=== PATIENT | female | born 1945 | race Hispanic/Latino ===

== ENCOUNTER 2016-07-05 09:06 | Outpatient (CLI) | payer MEDICARE, OTHER ==
[2016-07-05 16:36] LABS: #Basophils 0.1 thou/uL (0.0-0.2); #Eosinphils 0.2 thou/uL (0.0-0.7); #Lymphocytes 1.5 thou/uL (1.20-3.40); #Monocytes 0.4 thou/uL (0.11-0.59); #Neutrophils 4.3 thou/uL (1.40-6.50); %Basophils 1.5 % (0.0-1.0); %Eosinophils 3.3 % (0.0-10.0); %Lymphocytes 23.4 % (21.0-51.0); %Monocytes 6.6 % (0.0-10.0); %Neutrophils 65.2 % (42.0-75.0); Hemoglobin 14.3 g/dL (12.0-16.0); Mean Corpuscular HGB CONC 33.4 g/dL (32.0-36.0); Mean Corpuscular Hemoglobin 30.4 pg (27.0-31.0); Mean Platelet Volume 8.5 fL (7.4-10.4); Platelet Count 196 thou/uL (130-400); RBC Distribution Width 11.3 % (11.5-14.5); White Blood Cell (WBC) Count 6.6 thou/uL (4.8-10.8)
[2016-07-05 16:48] LABS: ALT (SGPT) 12 U/L (0-55); AST (SGOT) 15 U/L (5-34); Alkaline Phosphatase 63 U/L (40-150); Anion Gap 10 mmol/L (10-20); BUN (Urea Nitrogen) 11 mg/dL (9.8-20.1); Bilirubin, Total 0.4 mg/dL (0.2-1.2); Calc. Creatinine Clearance 0 mL/min (70-130); Calcium 8.8 mg/dL (7.8-10.44); Carbon Dioxide 28 mmol/L (23-31); Cardiac Risk 2.8 (Less than 4.5); Chloride 108 mmol/L (98-107); Cholesterol 139 mg/dL (< 200 Desired); Estimated GFR-MDRD 87; Globulin 2.7 g/dL (2.4-3.5); Glucose 91 mg/dL (83-110); HDL Cholesterol 50 mg/dL (>60 Neg Risk); LDL Cholesterol, Calculated 69 mg/dL; Potassium 4.7 mmol/L (3.5-5.1); Protein, Total 6.7 g/dL (5.8-8.1); Sodium 141 mmol/L (136-145); Triglycerides 100 mg/dL (Less than 150)
[2016-07-05 17:28] LABS: Thyroid Stimulating Hormone 0.4718 uIU/mL (0.35-4.94)
[2016-07-05 18:12] LABS: Hep C IgG Ab Non-Reactive (NonReactive); Hep C Index 0.11 S/CO (0-0.79)
== END 2016-07-05 09:07 | disposition home or self-care (01) ==
LOC: LABLEX 09:06
PROVIDERS: ATTEND Family Medicine
DX: E03.9 Hypothyroidism, unspecified (principal); E78.1 Pure hyperglyceridemia; E78.2 Mixed hyperlipidemia; Z72.89 Other problems related to lifestyle
CPT/HCPCS: 80053; 80061; 84443; 85025; 86803

== ENCOUNTER 2016-12-25 08:42 | Outpatient (CLI) | payer MEDICARE, OTHER ==
[2016-12-25 18:37] LABS: ALT (SGPT) 10 U/L (8-55); AST (SGOT) 16 U/L (5-34); Alkaline Phosphatase 63 U/L (40-150); Anion Gap 11 mmol/L (10-20); BUN (Urea Nitrogen) 8 mg/dL (9.8-20.1); Bilirubin, Total 0.5 mg/dL (0.2-1.2); Calc. Creatinine Clearance 0 mL/min (70-130); Calcium 9.2 mg/dL (7.8-10.44); Carbon Dioxide 29 mmol/L (23-31); Chloride 106 mmol/L (98-107); Estimated GFR-MDRD Greater than 90; Globulin 2.7 g/dL (2.4-3.5); Glucose 98 mg/dL (83-110); Potassium 4.6 mmol/L (3.5-5.1); Protein, Total 6.7 g/dL (6.0-8.3); Sodium 141 mmol/L (136-145)
[2016-12-25 18:41] LABS: Free T4 (Free Thyroxine) 1.13 ng/dL (0.70-1.48); Thyroid Stimulating Hormone 1.1872 uIU/mL (0.35-4.94)
== END 2016-12-25 08:43 | disposition home or self-care (01) ==
LOC: LABLEX 08:42
PROVIDERS: ATTEND Nurse Practitioner
DX: E03.9 Hypothyroidism, unspecified (principal); E78.00 Pure hypercholesterolemia, unspecified
CPT/HCPCS: 80053; 84439; 84443; 84481